=== PATIENT | female | born 1940 | race Caucasian/White ===

== ENCOUNTER 2017-03-07 09:47 | Outpatient (CLI) | payer MEDICARE ==
[2017-03-07 18:38] LABS: BILIRUBIN,URINE NEGATIVE (NEGATIVE)
[2017-03-07 18:45] LABS: ALBUMIN/GLOBULIN RATIO 1.3 (1.0-2.2); BILIRUBIN,TOTAL 0.9 mg/dL (0.2-1.0); BUN - BLOOD UREA NITROGEN 16 mg/dL (6-20); CALCIUM 9.4 mg/dL (8.5-10.3); CARBON DIOXIDE - CO2 30 mmol/L (21-32); CHLORIDE 106 mmol/L (101-111); CHOL/HDL RATIO 3.7 (<4.4); CHOLESTEROL 137 mg/dL; CREATININE 0.9 mg/dL (0.4-1.0); GFR - MDRD 61 (>89); GLUCOSE 98 mg/dL (70-100); HDL CHOLESTEROL 37 mg/dL; POTASSIUM 3.9 mmol/L (3.5-5.0); SODIUM 141 mmol/L (135-145); TRIGLYCERIDES 131 mg/dL; VLDL CHOLESTEROL 26 mg/dL
[2017-03-07 19:12] LABS: HEMOGLOBIN A1C 0.43 g/dL
== END 2017-03-07 09:48 | disposition home or self-care (01) ==
LOC: LAB.F 09:47
PROVIDERS: ATTEND Family Medicine
DX: I10 Essential (primary) hypertension (principal); E78.5 Hyperlipidemia, unspecified; R73.01 Impaired fasting glucose; I25.10 Atherosclerotic heart disease of native coronary artery without angina pectoris
CPT/HCPCS: 36415; 80053; 80061; 81001; 83036

== ENCOUNTER 2018-01-25 15:18 | Outpatient (CLI) | payer OTHER ==
--- NOTE | 2018-01-25 15:39 | XRAY Report ---
Procedure Date: 01/25/2018 Accession Number: [id number] / [id number] Procedure: XRS - Forearm LT CPT Code: FULL RESULT: EXAM: Forearm LT DATE: 01/25/2018 3:33 PM CLINICAL HISTORY: LUMP ON EXTREMITIES LEFT ULNA COMPARISON: None. TECHNIQUE: 2 views. FINDINGS: Bones: Normal. No fractures or bone lesions. Joints: Visualized portions of the wrist and elbow joints are unremarkable. Soft Tissues: Normal. No soft tissue swelling. IMPRESSION: Normal forearm radiography. RADIA
== END 2018-01-25 15:19 | disposition home or self-care (01) ==
LOC: DI.S 15:18
PROVIDERS: ATTEND Family Medicine
DX: R22.32 Localized swelling, mass and lump, left upper limb (principal)

== ENCOUNTER 2018-06-14 12:00 | Outpatient (CLI) | payer MEDICARE, OTHER | END 2018-06-14 23:59 | disposition home or self-care (01) | LOC: LAB.R 12:00 | PROVIDERS: ATTEND Family Medicine | DX: L98.8 Other specified disorders of the skin and subcutaneous tissue (principal) | CPT/HCPCS: 87070; 87075; 87205 ==

== ENCOUNTER 2018-09-14 08:00 | Outpatient (CLI) | payer MEDICARE ==
[2018-09-14 13:02] LABS: BASOPHILS # (AUTO) 0.1 10^3/uL (0.0-0.1); BASOPHILS % (AUTO) 1.5 %; EOSINOPHILS # (AUTO) 0.1 10^3/uL (0.0-0.7); EOSINOPHILS % (AUTO) 2.1 %; HGB - HEMOGLOBIN 11.4 g/dL (12.0-16.0); LYMPHOCYTES # (AUTO) 0.9 10^3/uL (1.5-3.5); MEAN CORPUSCULAR HEMOGLOBIN 32.1 pg (27.0-31.0); MEAN CORPUSCULAR HGB CONC 34.4 g/dL (32.0-36.0); MEAN CORPUSCULAR VOLUME 93.4 fL (81.0-99.0); MEAN PLATELET VOLUME 10.4 fL (7.9-10.8); MONOCYTES # (AUTO) 0.4 10^3/uL (0.0-1.0); MONOCYTES % (AUTO) 9.8 %; NEUTROPHILS # (AUTO) 2.9 10^3/uL (1.5-6.6); NEUTROPHILS % (AUTO) 65.6 %; PLT - PLATELET COUNT 168 10^3/uL (130-450); RED BLOOD COUNT 3.55 10^6/uL (4.20-5.40); RED CELL DISTRIBUTION WIDTH 12.4 % (12.0-15.0); WHITE BLOOD COUNT 4.4 x10^3/uL (4.8-10.8)
[2018-09-14 13:23] LABS: ALBUMIN 3.2 g/dL (3.2-5.5); ALBUMIN/GLOBULIN RATIO 1.1 (1.0-2.2); ALKALINE PHOSPHATASE 73 IU/L (42-121); ALT ALANINE AMINOTRANSFERASE 22 IU/L (10-60); AST ASPARTATE AMINOTRANSFERASE 30 IU/L (10-42); BILIRUBIN,TOTAL 0.7 mg/dL (0.2-1.0); BUN - BLOOD UREA NITROGEN 16 mg/dL (6-20); CALCIUM 9.1 mg/dL (8.5-10.3); CARBON DIOXIDE - CO2 29 mmol/L (21-32); CHLORIDE 102 mmol/L (101-111); CHOL/HDL RATIO 3.3 (<4.4); CHOLESTEROL 135 mg/dL; CREATININE 0.9 mg/dL (0.4-1.0); GFR - MDRD 61 (>89); GLUCOSE 93 mg/dL (70-100); HDL CHOLESTEROL 41 mg/dL; LDL CHOLESTEROL,CALCULATED 64 mg/dL; LDL/HDL RATIO 1.6 (<4.4); SODIUM 139 mmol/L (135-145); TOTAL PROTEIN 6.2 g/dL (6.7-8.2); VLDL CHOLESTEROL 30 mg/dL
== END 2018-09-14 23:59 | disposition home or self-care (01) ==
LOC: LAB.WCP 08:00
PROVIDERS: ATTEND Family Medicine
DX: E78.5 Hyperlipidemia, unspecified (principal); I10 Essential (primary) hypertension
CPT/HCPCS: 36415; 80053; 80061; 83721; 85025

== ENCOUNTER 2019-06-11 10:22 | Outpatient (CLI) | payer MEDICARE ==
[2019-06-11 17:25] LABS: BASOPHILS % (AUTO) 0.8 %; EOSINOPHILS # (AUTO) 0.2 10^3/uL (0.0-0.7); EOSINOPHILS % (AUTO) 4.1 %; HGB - HEMOGLOBIN 11.7 g/dL (12.0-16.0); LYMPHOCYTES # (AUTO) 0.8 10^3/uL (1.5-3.5); MEAN CORPUSCULAR HEMOGLOBIN 32.1 pg (27.0-31.0); MEAN CORPUSCULAR HGB CONC 31.8 g/dL (32.0-36.0); MEAN CORPUSCULAR VOLUME 101.1 fL (81.0-99.0); MEAN PLATELET VOLUME 12.4 fL (7.9-10.8); MONOCYTES # (AUTO) 0.5 10^3/uL (0.0-1.0); MONOCYTES % (AUTO) 13.3 %; NEUTROPHILS # (AUTO) 2.2 10^3/uL (1.5-6.6); NEUTROPHILS % (AUTO) 60.5 %; PLT - PLATELET COUNT 172 10^3/uL (130-450); RED BLOOD COUNT 3.64 10^6/uL (4.20-5.40); RED CELL DISTRIBUTION WIDTH 12.2 % (12.0-15.0); WHITE BLOOD COUNT 3.6 x10^3/uL (4.8-10.8)
[2019-06-11 17:45] LABS: ALBUMIN 3.6 g/dL (3.2-5.5); ALBUMIN/GLOBULIN RATIO 1.2 (1.0-2.2); ALKALINE PHOSPHATASE 74 IU/L (42-121); ALT ALANINE AMINOTRANSFERASE 22 IU/L (10-60); AST ASPARTATE AMINOTRANSFERASE 28 IU/L (10-42); BILIRUBIN,TOTAL 0.7 mg/dL (0.2-1.0); BUN - BLOOD UREA NITROGEN 19 mg/dL (6-20); CALCIUM 9.4 mg/dL (8.5-10.3); CARBON DIOXIDE - CO2 30 mmol/L (21-32); CHLORIDE 105 mmol/L (101-111); CHOL/HDL RATIO 3.5 (<4.4); CHOLESTEROL 176 mg/dL; CREATININE 0.8 mg/dL (0.4-1.0); GFR - MDRD 70 (>89); GLUCOSE 95 mg/dL (70-100); HDL CHOLESTEROL 51 mg/dL; LDL CHOLESTEROL,CALCULATED 96 mg/dL; LDL/HDL RATIO 1.9 (<4.4); SODIUM 141 mmol/L (135-145); TOTAL PROTEIN 6.7 g/dL (6.7-8.2); VLDL CHOLESTEROL 29 mg/dL
== END 2019-06-11 10:23 | disposition home or self-care (01) ==
LOC: LAB.S 10:22
PROVIDERS: ATTEND Family Medicine
DX: I10 Essential (primary) hypertension (principal); E78.5 Hyperlipidemia, unspecified; I25.10 Atherosclerotic heart disease of native coronary artery without angina pectoris
CPT/HCPCS: 36415; 80053; 80061; 83721; 84443; 85025

== ENCOUNTER 2019-06-20 10:18 | Outpatient (CLI) | payer MEDICARE ==
--- NOTE | 2019-06-21 09:05 | Mammography Report ---
Reason: ROUTINE MAMMO Procedure Date: 06/20/2019 Accession Number: [id number] / [id number] Procedure: MGS - Screening Mammo Dig Bilat CPT Code: Final Report FULL RESULT: EXAM: Screening Mammo Dig Bilat DATE: 06/20/2019 10:53 AM CLINICAL HISTORY: Screening encounter. TECHNIQUE: (B) - Bilateral CC and MLO views were obtained. Left laterally exaggerated CC view is obtained. COMPARISON: 04/20/2016 through 10/06/2009. PARENCHYMAL PATTERN: (D) - The breast(s) demonstrate(s) heterogeneously dense fibroglandular parenchyma. FINDINGS: There are typically benign vascular calcifications. There are no suspicious masses, calcifications, or areas of distortion. IMPRESSION: Benign findings. BI-RADS category 2. RECOMMENDATION: (ANNUAL) - Recommend routine annual screening mammography. BI-RADS CATEGORY: (2) - Benign Findings. STANDARD QUALIFYING STATEMENTS: 1. This examination was reviewed with the aid of Computer-Aided Detection (CAD). 2. A negative or benign imaging report should not preclude biopsy if clinically suspicious findings are present. 3. Dense breasts may obscure an underlying neoplasm. 4. This examination was reviewed without the aid of 3D breast imaging (tomosynthesis).
== END 2019-06-20 10:19 | disposition home or self-care (01) ==
LOC: DI.S 10:18
PROVIDERS: ATTEND Family Medicine
DX: Z12.31 Encounter for screening mammogram for malignant neoplasm of breast (principal)
CPT/HCPCS: 77067

== ENCOUNTER 2020-05-24 14:42 | Outpatient (CLI) | payer MEDICARE ==
--- NOTE | 2020-05-24 19:06 | Ultrasound Report ---
PROCEDURE: Duplex Lwr Ext Arterial Bilat INDICATIONS: ABSENT DP PULSE TECHNIQUE: Color and pulse Doppler interrogation was performed of both lower extremity arterial systems, with im age documentation. COMPARISON: None available FINDINGS: Right lower extremity: Common femoral artery: 126.4 cm/sec, with triphasic flow. Deep femoral artery: 116.8 cm/sec, with biphasic flow. Proximal superficial femoral artery: 115 cm/sec, with triphasic flow. Mid superficial femoral artery: 145.8 cm/sec, with biphasic. flow. Distal superficial femoral artery: 99.7 cm/sec, with biphasic flow. Popliteal artery: 82.0 cm/sec, with triphasic flow. Posterior tibial artery: 23.0 cm/sec, with monophasic flow. Anterior tibial artery/dorsalis pedis: 76.7 cm/sec, with biphasic flow. 44.7 cm/s, with monophasic flow Rivero-scale imaging description: Extensive coarse calcification in the proximal SFA causing luminal i rregularity. There is moderate focal calcific plaque in the mid SFA causing slight distal velocity el evation. Proximal posterior tibial artery was not seen. The distal posterior tibial reconstitutes. The peronea l artery is patent. Calcification of calf arteries. There is a Goodman's cyst in the right popliteal fossa soft tissues measuring 5.9 x 1.1 x 3.1 cm Left lower extremity: Common femoral artery: 76.3 cm/sec, with biphasic flow. Deep femoral artery: 85.4 cm/sec, with biphasic flow. Proximal superficial femoral artery: 57.3 cm/sec, with triphasic flow. Mid superficial femoral artery: 90.0 cm/sec, with biphasic flow. Distal superficial femoral artery: 90.6 cm/sec, with biphasic flow. Popliteal artery: 77.5 cm/sec, with biphasic flow. Posterior tibial artery: 28.0 cm/sec, with monophasic flow. Anterior tibial artery/dorsalis pedis: 55.8 cm/sec, with biphasic flow. 25.7 cm/s with monophasic fl ow Rivero-scale imaging description: Calcific plaque in the left mid SFA without causing significant cyndy nal stenosis. There is more extensive plaque in the mid to distal SFA. Mid posterior tibial artery is not well seen. The peroneal artery is patent. Calcification of calf arteries. IMPRESSION: 1. There is bilateral calcification, most extensive in the right proximal to mid, and left mid to dis lily superficial femoral arteries. Given velocities, there is no hemodynamically significant stenosis. 2. Heavy calcification in all calf arteries with possible occlusion of the right proximal posterior t ibial artery and reconstitution distally. 3. For further evaluation, CTA or MRA lower extremity runoff is recommended. Reviewed by: Marizol Morales MD on 05/24/2020 7:05 PM PST Approved by: Marizol Morales MD on 05/24/2020 7:05 PM PST Station ID: [id number]
== END 2020-05-24 14:43 | disposition home or self-care (01) ==
LOC: DI 14:42
PROVIDERS: ATTEND Internal Medicine
DX: I70.203 Unspecified atherosclerosis of native arteries of extremities, bilateral legs (principal)
CPT/HCPCS: 93925

== ENCOUNTER 2020-06-20 20:05 | Emergency (ER) | payer MEDICARE ==
--- NOTE | 2020-06-20 21:49 | ED Physician Documentation ---
PD HPI Fall - Stated complaint Stated Complaint: FALL - Chief complaint Chief Complaint: Trauma Hd/Nk - History obtained from History obtained from: Patient - History of Present Illness Mechanism of injury: Other (see narrative below) Fall distance: Standing position Where injury occurred: A house / apartment Timing - onset: Enter time (13:00) Injury(ies) location: Head, Left Lower Extremity Pain level now: 3 Quality of pain: Pain Associated symptoms: LOC Symptoms improve with: Rest Worsens with: Movement, Palpation Contributing factors: No: Anticoagulated, Intoxicated Recently seen: Not recently seen - Additional information Additional information: 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 she was backing up to compose a shot and was concentrating on the picture and didnt realize she was close to the stairs, causing her to back up until she fell backwards down 4 stairs. she hit her head and had brief LOC. she c/o mild generalized SALDANA. her chief c/o is right pelvic bony pain posteriorly (left buttock) and anteriorly at groin, worse with weight-bearing. this occurred at 1 pm; she has been ambulatory since then despite painful weight-bearing on LLE Review of Systems Eyes: reports: Reviewed and negative Cardiac: reports: Reviewed and negative Respiratory: reports: Reviewed and negative GI: reports: Reviewed and negative Neurologic: reports: Headache, Head injury, LOC. 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 - Present Medications Home Medications: Ambulatory Orders Medication Instructions Recorded Confirmed Aspirin Chewable [St Ethan 81 mg PO DAILY 06/20/20 06/20/20 Aspirin] Rosuvastatin Calcium [Crestor] DAILY 06/20/20 amLODIPine [Norvasc] 5 mg DAILY 06/20/20 06/20/20 carvediloL [Coreg] 6.25 mg BID 06/20/20 06/20/20 - Allergies Allergies/Adverse Reactions: Allergies Allergy/AdvReac Type Severity Reaction Status Date / Time No Known Drug Allergies Allergy Verified 06/20/20 20:09 - Social History Does the pt smoke?: No Smoking Status: Never smoker Does the pt drink ETOH?: No Does the pt have substance abuse?: No PD ED PE NORMAL - Vitals Vital signs reviewed: Yes - General General: Alert and oriented X 3, No acute distress, Well developed/nourished - HEENT HEENT: PERRL, EOMI - Neck Neck: No bony TTP - Cardiac Cardiac: RRR, No murmur - Respiratory Respiratory: No respiratory distress, Clear bilaterally - Abdomen Abdomen: Soft, Non tender - Back Back: No spinal TTP - Extremities Extremities: No edema, Other (mild TTP left bony pelvis and lateral left hip) - Neuro Neuro: Alert and oriented X 3, 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, No motor deficit, No sensory deficit, Normal speech PD ED PE EXPANDED - HEENT HEENT Visual: 1 - swelling, tenderness Results - Vitals Vitals: Vital Signs - 24 hr 06/20/20 06/20/20 06/20/20 20:12 20:45 21:15 Temperature 36.9 C 36.9 C 36.8 C Heart Rate 80 75 69 Respiratory 18 12 20 Rate Blood Pressure 160/79 H 163/74 H 160/80 H O2 Saturation 100 100 99 06/20/20 06/20/20 06/20/20 21:30 22:00 22:42 Temperature 36.7 C 36.8 C Heart Rate 69 70 71 Respiratory 20 16 20 Rate Blood Pressure 151/87 H 162/83 H 157/78 H O2 Saturation 97 98 99 06/20/20 06/20/20 23:00 23:27 Temperature 36.9 C 36.7 C Heart Rate 68 71 Respiratory 15 16 Rate Blood Pressure 152/83 H 148/73 H O2 Saturation 99 100 Oxygen O2 Source Room air - Rads (name of study) CT head Radiology: Prelim report reviewed, See rad report left hip xrays Radiology: Prelim report reviewed, See rad report PD MEDICAL DECISION MAKING - ED course Complexity details: reviewed results, re-evaluated patient, considered differential, d/w patient Departure - Departure Disposition: 01 Home, Self Care Clinical Impression: Contusion, Fall, Sprain of left hip Condition: Good Instructions: ED Contusion Scalp, ED Mechanical Fall, ED Sprain Hip Follow-Up: Viridiana Lewis MD [Primary Care Provider] - Discharge Date/Time: 06/20/20 23:45
[2020-06-20 23:27] VITALS: BP 148/73
--- NOTE | 2020-06-21 08:57 | CT Report ---
PROCEDURE: HEAD WO INDICATIONS: fall, head injury with LOC TECHNIQUE: Noncontrast 4.5 mm thick angled axial sections acquired from the foramen magnum to the vertex. For r adiation dose reduction, the following was used: automated exposure control, adjustment of mA and/or kV according to patient size. COMPARISON: None. FINDINGS: Image quality: Excellent. CSF spaces: Basal cisterns are patent. No extra-axial fluid collections. Ventricles are normal in size and shape. Brain: No midline shift. No intracranial masses or hemorrhage. There is patchy confluent hypoattenu ation of the periventricular and deep white matter consistent with moderate to severe chronic small v essel ischemic disease. Skull and face: Calvarium and visualized facial bones are intact, without suspicious lesions. Left posterior parietal/occipital scalp hematoma measuring 6 mm. Sinuses: Visualized sinuses and mastoids are clear. IMPRESSION: 1. No acute intracranial abnormality. 2. Left posterior parietal/occipital scalp hematoma. 3. Chronic small vessel ischemic disease. Reviewed by: Logan Osullivan on 06/21/2020 8:55 AM [facility] Approved by: Logan Osullivan on 06/21/2020 8:55 AM [facility] Station ID: [id number]
--- NOTE | 2020-06-21 09:25 | XRAY Report ---
PROCEDURE: Hip w/Pelvis 2-3V LT INDICATIONS: fall, pain and tenderness TECHNIQUE: AP pelvis with lateral view(s) of the bilateral hip(s). COMPARISON: None. FINDINGS: Bones: No fractures or dislocations. Mild degenerative change of the left hip. Pelvic ring appears i ntact. Moderate degenerative change of the lumbar spine. No suspicious bony lesions. Soft tissues: Prominent stool in the colon. Gas in the rectal vault. No suspicious soft tissue calcif ications. Vascular calcifications. IMPRESSION: No fracture or dislocation. Prominent stool in the colon. This report is concordant with the overnight pulmonary interpretation. Reviewed by: Jason Dominique MD on 06/21/2020 8:24 AM [facility] Approved by: Jason Dominique MD on 06/21/2020 8:24 AM [facility] Station ID: [id number]
== END 2020-06-20 23:45 | disposition home or self-care (01) ==
LOC: ED 20:05
DX: S06.9X1A Unspecified intracranial injury with loss of consciousness of 30 minutes or less, initial encounter (principal); S00.03XA Contusion of scalp, initial encounter; S73.102A Unspecified sprain of left hip, initial encounter; W10.9XXA Fall (on) (from) unspecified stairs and steps, initial encounter; Y93.89 Activity, other specified; Y92.009 Unspecified place in unspecified non-institutional (private) residence as the place of occurrence of the external cause; I10 Essential (primary) hypertension; Z79.82 Long term (current) use of aspirin
CPT/HCPCS: 70450; 99282; 99284

== ENCOUNTER 2020-10-20 13:42 | Outpatient (CLI) | payer MEDICARE ==
--- NOTE | 2020-10-21 13:23 | Mammography Report ---
BILATERAL DIGITAL SCREENING MAMMOGRAM 3D/2D WITH EXAGGERATED CC: 10/20/2020 CLINICAL: Family history of breast cancer. Family history of breast cancer. Comparison is made to exams dated: 06/20/2019 mammogram, 04/20/2016 mammogram, 04/09/2015 mammogram, 02/18/2014 mammogram, and 01/24/2013 mammogram - [facility]. The tissue of both rachel sts is predominantly fatty. There is a 1 cm asymmetry with a circumscribed margin in the right breast middle depth lateral region seen on the craniocaudal view only 8 cm from the nipple. No other significant masses, calcifications, or other findings are seen in either breast. IMPRESSION: INCOMPLETE: NEEDS ADDITIONAL IMAGING EVALUATION The 1 cm asymmetry in the right breast is consistent with fibroglandular tissue and is indeterminate. Additional views with possible ultrasound are recommended. This exam was interpreted at Station ID: [id number]. NOTE: For mammograms, a report in lay terms will be sent to the patient. Approximately 15% of breast malignancies will not be visualized mammographically. In the management of a palpable breast mass, a negative mammogram must not discourage biopsy of a clinically suspicious lesion. Electronically Signed By: Logan Osullivan acr/:10/20/2020 14:43:54 ACR BI-RADS Category 0: Incomplete 3340F PARENCHYMAL PATTERN: (F) - The breast(s) demonstrate(s) diffuse fatty replacement. BI-RADS CATEGORY: (0) - 0 Mammo and US [id number] Immediate follow-up LATERALITY: (R)
== END 2020-10-20 13:43 | disposition home or self-care (01) ==
LOC: DI.S 13:42
PROVIDERS: ATTEND Internal Medicine
DX: Z12.31 Encounter for screening mammogram for malignant neoplasm of breast (principal); Z80.3 Family history of malignant neoplasm of breast; N64.89 Other specified disorders of breast

== ENCOUNTER 2020-11-10 09:35 | Outpatient (CLI) | payer MEDICARE ==
--- NOTE | 2020-11-11 12:15 | Mammography Report ---
UNILATERAL RIGHT DIGITAL DIAGNOSTIC MAMMOGRAM 3D/2D: 11/10/2020 CLINICAL: Patient returns today to evaluate a density in the right breast. Comparison is made to exams dated: 10/20/2020 mammogram, 06/20/2019 mammogram, and 04/20/2016 mammogr am - [facility]. The tissue of right breast is heterogeneously dense. This may low er the sensitivity of mammography. There is an oval low density asymmetry with an indistinct and circumscribed margin in the right breas t posterior depth lateral region seen on the craniocaudal view only. This is less prominent on addit ional views. No other significant masses or calcifications are seen in the breast. IMPRESSION: INCOMPLETE: NEEDS ADDITIONAL IMAGING EVALUATION The oval low density asymmetry in the right breast is indeterminate. An ultrasound is recommended. Ultrasound will be performed immediately following the current exam. This exam was interpreted at Station ID: [id number]. NOTE: For mammograms, a report in lay terms will be sent to the patient. Approximately 15% of breast malignancies will not be visualized mammographically. In the management of a palpable breast mass, a negative mammogram must not discourage biopsy of a clinically suspicious lesion. Electronically Signed By: Gianluca Fernandez M.D. ddp/:11/10/2020 10:08:50 ACR BI-RADS Category 0: Incomplete 3340F PARENCHYMAL PATTERN: (D) - The breast(s) demonstrate(s) heterogeneously dense fibroglandular parmaty cheng. BI-RADS CATEGORY: (0) - 0 Ultrasound [id number] Immediate follow-up LATERALITY: (B)
--- NOTE | 2020-11-11 12:15 | Ultrasound Report ---
LIMITED ULTRASOUND OF RIGHT BREAST: 11/10/2020 CLINICAL: Patient returns today to evaluate a focal asymmetry in the right breast. Comparison is made to exams dated: 11/10/2020 mammogram, 10/20/2020 mammogram, 06/20/2019 mammogram, mammogram, 04/09/2015 mammogram, and 02/18/2014 mammogram - [facility]. Real-time ultrasound of the right breast 8-11 o'clock region was performed on the areas of interest. Rivero scale images of the real-time examination were reviewed. No discrete cystic or solid mass lesion identified in the area of mammographic abnormality. IMPRESSION: NEGATIVE There is no sonographic evidence of malignancy. There are no abnormalities seen in the right breast to correspond with the mammography finding in the upper outer quadrant. A 1 year screening mammogram is recommended. This exam was interpreted at Station ID: [id number]. Electronically Signed By: Gianluca Fernandez M.D. ddp/:11/10/2020 10:41:11 Ultrasound BI-RADS: 1 Negative BI-RADS CATEGORY: (1) - 1 RECOMMENDATION: (ANNUAL) - Recommend routine annual screening mammography. [id number] 1 year screening LATERALITY: (B)
== END 2020-11-10 09:36 | disposition home or self-care (01) ==
LOC: DI 09:35
PROVIDERS: ATTEND Internal Medicine
DX: R92.2 Inconclusive mammogram (principal); N64.89 Other specified disorders of breast

== ENCOUNTER 2021-10-26 08:00 | Outpatient (CLI) | payer MEDICARE ==
[2021-10-26 16:18] LABS: BASOPHILS % (AUTO) 0.5 %; EOSINOPHILS # (AUTO) 0.1 10^3/uL (0.0-0.7); EOSINOPHILS % (AUTO) 3.1 %; HCT - HEMATOCRIT 36.5 % (37.0-47.0); HGB - HEMOGLOBIN 11.9 g/dL (12.0-16.0); LYMPHOCYTES # (AUTO) 0.9 10^3/uL (1.5-3.5); LYMPHOCYTES % (AUTO) 21.7 %; MEAN CORPUSCULAR HEMOGLOBIN 31.9 pg (27.0-31.0); MEAN CORPUSCULAR HGB CONC 32.6 g/dL (32.0-36.0); MEAN CORPUSCULAR VOLUME 97.9 fL (81.0-99.0); MEAN PLATELET VOLUME 11.7 fL (7.9-10.8); MONOCYTES # (AUTO) 0.3 10^3/uL (0.0-1.0); NEUTROPHILS # (AUTO) 2.8 10^3/uL (1.5-6.6); NEUTROPHILS % (AUTO) 66.5 %; PLT - PLATELET COUNT 176 10^3/uL (130-450); RED BLOOD COUNT 3.73 10^6/uL (4.20-5.40); RED CELL DISTRIBUTION WIDTH 12.5 % (12.0-15.0); WHITE BLOOD COUNT 4.1 x10^3/uL (4.8-10.8)
[2021-10-26 16:36] LABS: ALBUMIN 3.7 g/dL (3.2-5.5); ALBUMIN/GLOBULIN RATIO 1.2 (1.0-2.2); ALKALINE PHOSPHATASE 64 IU/L (42-121); ALT ALANINE AMINOTRANSFERASE 21 IU/L (10-60); AST ASPARTATE AMINOTRANSFERASE 26 IU/L (10-42); BILIRUBIN,TOTAL 0.5 mg/dL (0.2-1.0); BUN - BLOOD UREA NITROGEN 17 mg/dL (6-20); CALCIUM 9.2 mg/dL (8.5-10.3); CARBON DIOXIDE - CO2 29 mmol/L (21-32); CHLORIDE 101 mmol/L (101-111); CHOL/HDL RATIO 3.4 (<4.4); CHOLESTEROL 148 mg/dL; CK- CREATINE KINASE 88 IU/L (22-269); CREATININE 0.8 mg/dL (0.4-1.0); GFR - MDRD 69 (>89); GLUCOSE 102 mg/dL (70-100); HDL CHOLESTEROL 43 mg/dL; LDL CHOLESTEROL,CALCULATED 84 mg/dL; POTASSIUM 4.1 mmol/L (3.5-5.0); SODIUM 138 mmol/L (135-145); TOTAL PROTEIN 6.9 g/dL (6.7-8.2); TRIGLYCERIDES 107 mg/dL; VLDL CHOLESTEROL 21 mg/dL
== END 2021-10-26 08:01 | disposition home or self-care (01) ==
LOC: LAB.R 08:00
PROVIDERS: ATTEND Internal Medicine
DX: Z00.00 Encounter for general adult medical examination without abnormal findings (principal); I25.10 Atherosclerotic heart disease of native coronary artery without angina pectoris; I10 Essential (primary) hypertension; Z79.899 Other long term (current) drug therapy
CPT/HCPCS: 80053; 80061; 82550; 83721; 84443; 85025

== ENCOUNTER 2022-01-04 09:42 | Outpatient (CLI) | payer MEDICARE ==
--- NOTE | 2022-01-05 09:04 | Mammography Report ---
BILATERAL DIGITAL SCREENING MAMMOGRAM 3D/2D: 01/04/2022 CLINICAL: Routine screening. Family history of breast cancer. Comparison is made to exams dated: 10/20/2020 mammogram, 06/20/2019 mammogram, and 04/20/2016 mammogr am - [facility]. The tissue of both breasts is heterogeneously dense. This may low er the sensitivity of mammography. There are benign vascular calcifications in both breasts. No significant masses, calcifications, or other findings are seen in either breast. There has been no significant interval change. IMPRESSION: BENIGN There is no mammographic evidence of malignancy. A 1 year screening mammogram is recommended. Based on the Tyrer Cuzick model (a risk assessment model) the patients lifetime risk is 2.2% and her 10 year risk is 0.0%. According to the ACR, ACS, and NCCN guidelines, an annual breast MRI exam rebecca g with mammogram is recommended if the patients lifetime risk is 20% or greater. This exam was interpreted at Station ID: [id number]. NOTE: For mammograms, a report in lay terms will be sent to the patient. Approximately 15% of breast malignancies will not be visualized mammographically. In the management of a palpable breast mass, a negative mammogram must not discourage biopsy of a clinically suspicious lesion. Electronically Signed By: Tami houston/behzad:01/04/2022 13:26:45 ACR BI-RADS Category 2: Benign Finding(s) 3342F PARENCHYMAL PATTERN: (D) - The breast(s) demonstrate(s) heterogeneously dense fibroglandular dale cheng. BI-RADS CATEGORY: (2) - 2 RECOMMENDATION: (ANNUAL) - Recommend routine annual screening mammography. [id number] 1 year screening LATERALITY: (B)
== END 2022-01-04 09:43 | disposition home or self-care (01) ==
LOC: DI.S 09:42
PROVIDERS: ATTEND Internal Medicine
DX: Z12.31 Encounter for screening mammogram for malignant neoplasm of breast (principal); Z80.3 Family history of malignant neoplasm of breast

== ENCOUNTER 2023-01-03 08:47 | Outpatient (CLI) | payer MEDICARE ==
--- NOTE | 2023-01-04 10:25 | Mammography Report ---
BILATERAL DIGITAL SCREENING MAMMOGRAM 3D/2D: 01/03/2023 CLINICAL: Routine screening. Family history of breast cancer. Comparison is made to exams dated: 01/04/2022 mammogram, 11/10/2020 ultrasound, 06/20/2019 mammogram, a nd 04/20/2016 mammogram - [facility]. Both breasts are heterogeneously dense, which may obscure small masses (category c / 51-75% glandular tissue). There are benign vascular calcifications in both breasts. No significant masses, calcifications, or other findings are seen in either breast. There has been no significant interval change. IMPRESSION: BENIGN There is no mammographic evidence of malignancy. A 1 year screening mammogram is recommended. Based on the Tyrer Cuzick model (a risk assessment model) the patients lifetime risk is 1.9% and her 10 year risk is 0.0%. According to the ACR, ACS, and NCCN guidelines, an annual breast MRI exam rebecca g with mammogram is recommended if the patients lifetime risk is 20% or greater. This exam was interpreted at Station ID: [id number]. NOTE: For mammograms, a report in lay terms will be sent to the patient. Approximately 15% of breast malignancies will not be visualized mammographically. In the management of a palpable breast mass, a negative mammogram must not discourage biopsy of a clinically suspicious lesion. Electronically Signed By: Sacha moore/behzad:01/03/2023 20:19:37 letter sent: No_Letter ACR BI-RADS Category 2: Benign Finding(s) 3342F PARENCHYMAL PATTERN: (D) - The breast(s) demonstrate(s) heterogeneously dense fibroglandular parfarzanay ma. BI-RADS CATEGORY: (2) - 2 Mammogram [id number] 1 year screening LATERALITY: (B)
== END 2023-01-03 08:48 | disposition home or self-care (01) ==
LOC: DI.S 08:47
PROVIDERS: ATTEND Internal Medicine
DX: Z12.31 Encounter for screening mammogram for malignant neoplasm of breast (principal); Z80.3 Family history of malignant neoplasm of breast

== ENCOUNTER 2024-01-15 08:45 | Outpatient (CLI) | payer MEDICARE ==
--- NOTE | 2024-01-16 08:56 | Mammography Report ---
BILATERAL DIGITAL SCREENING MAMMOGRAM 3D/2D: 01/15/2024 CLINICAL: Routine screening. Family history of breast cancer. Comparison is made to exams dated: 01/03/2023 mammogram, 01/04/2022 mammogram, 11/10/2020 mammogram, 10/08 mammogram, and 06/20/2019 mammogram - [facility]. Both breasts are heterogeneously dense, which may obscure small masses (category c / 51-75% glandular tissue). There are benign vascular calcifications in both breasts. No significant masses, calcifications, or other findings are seen in either breast. There has been no significant interval change. IMPRESSION: BENIGN There is no mammographic evidence of malignancy. A 1 year screening mammogram is recommended. Based on the Tyrer Cuzick model (a risk assessment model) the patient's lifetime risk is 0.9% and her 10 year risk is 0.0%. According to the ACR, ACS, and NCCN guidelines, an annual breast MRI exam rebecca g with mammogram is recommended if the patient's lifetime risk is 20% or greater. This exam was interpreted at Station ID: [id number]. NOTE: For mammograms, a report in lay terms will be sent to the patient. Approximately 15% of breast malignancies will not be visualized mammographically. In the management of a palpable breast mass, a negative mammogram must not discourage biopsy of a clinically suspicious lesion. Electronically Signed By: Marizol slade/behzad:01/15/2024 12:19:46 letter sent: No_Letter ACR BI-RADS Category 2: Benign Finding(s) 3342F PARENCHYMAL PATTERN: (D) - The breast(s) demonstrate(s) heterogeneously dense fibroglandular parmaty ma. BI-RADS CATEGORY: (2) - 2 RECOMMENDATION: (ANNUAL) - Recommend routine annual screening mammography. [id number] 1 year screening LATERALITY: (B)
== END 2024-01-15 08:46 | disposition home or self-care (01) ==
LOC: DI.S 08:45
PROVIDERS: ATTEND Internal Medicine
DX: Z12.31 Encounter for screening mammogram for malignant neoplasm of breast (principal); R92.333 Mammographic heterogeneous density, bilateral breasts; Z80.3 Family history of malignant neoplasm of breast

== ENCOUNTER 2024-04-09 11:41 | Inpatient (IN) ==
[2024-04-09] MEDS ORDERED: iohexoL-300 100 ML VIAL ONE (12:36)
[2024-04-09] MEDS ORDERED: LABETALOL 20 MG/4 ML SYRINGE IVP ONE (15:09)
--- NOTE | 2024-04-09 15:50 | HISTORY & PHYSICAL EXAMINATION ---
Chief Complaint Chief Complaint Chief Complaint: Left-sided weakness History of Present Illness History Obtained From History obtained from: Patient History of Present Illness HPI Comment/Other: Patient is a 83-year-old female with a history of CABG in 2008, hyperlipidemia, hypertension who presents after left-sided weakness. Patient states that yesterday, around 8 AM, she noted that her left leg was weaker, as well as her left arm. She stated that it kept giving out. She also stated that she had difficulty braiding her hair.After this, she believed she had a "minor stroke" but didn't think there was anything that could be done, so she didn't seek medical attention. Of note, her PCP recently retired as well (cannot recall their name), so she didn't make an appointment with a PCP either. This morning, [place] was at the bank, and she had 2-3 falls. Bystanders noted the weakness and encouraged her to go to a walk-in clinic, who sent her here. She has never had any strokes in the past. She denies any history of abnormal heart rhythms including atrial fibrillation, although her history is notable for a CABG in 2008. She states her blood pressure is well controlled and her doctor stopped her losartan. She is not a diabetic. Patient states that her left leg and her left arm both feel weak. She notes normal sensation. She notes no difficulties moving her right side. She has no vision changes, tongue deviation, difficulty speaking, difficulty expressing herself. She also denies any fevers, chills, chest pain, shortness of breath. She took her medications earlier this morning including her aspirin. Meds/Allgy Home Medications Ambulatory Orders Medication Instructions Recorded Confirmed aspirin 81 mg chewable tablet 81 mg PO DAILY 06/20/20 04/09/24 rosuvastatin 5 mg tablet (Crestor) 5 mg PO DAILY 06/20/20 04/09/24 carvedilol 25 mg tablet 25 mg PO BID 04/09/24 04/09/24 Allergies Allergies Allergy/AdvReac Type Severity Reaction Status Date / Time atenolol AdvReac Intermediate sore Verified 04/09/24 15:50 [facility] Family History Family History (Updated 04/09/24 @ 16:01 by Ann Navarro MD) Other CAD (coronary artery disease) Social History Social History (Updated 04/09/24 @ 16:01 by Ann Navarro MD) Smoking Status: Never smoker Do you vape?: No Living arrangement: At home Living Condition: Alone Physical Activity: Walking Level: Independent Home Mobility Equipment: Walker History of Abuse: No Frequency: Occasional POLST Patient has POLST: No Review of Systems Constitutional Reports: Weakness; Denies: Fatigue, Fever or Chills Eyes Denies: Pain, Irritation, Blurry vision or Vision loss Cardiovascular Denies: chest pain, palpitations, edema, swelling of feet/ankles, Syncope, lightheadedness or shortness of breath with exertion Respiratory Denies: Shortness of breath, Cough, Sputum production or Wheezing Gastrointestinal Denies: Abdominal pain, Abdominal distention, Nausea or Vomiting Genitourinary Denies: Urinary frequency, Urinary urgency or Urinary incontinence Neurological Reports: General weakness, Focal weakness and Weakness in extremities (Left upper and lwoer) Endocrine Denies: Fatigue Allergic/Immunologic Denies: Wheezing Prior Level of Functionality: Lived independently, ambulation with walker. Conclusion/Plan Problem List (1) Acute CVA (cerebrovascular accident): Plan: MRI shows acute CVA in ramos radiata (awaiting final report). Awaiting CTA. Echo ordered, cardiac telemetry placed to evaluate for any arrhythmias. Continue aspirin, statin. Consider high-dose statin. Physical therapy to evaluate patient for placement. (2) Left-sided weakness: Plan: See plan above. (3) Hypertension: Plan: Out of window for permissive hypertension; continue home Coreg. (4) Hyperlipidemia: Plan: Continue statin. Consider high dose statin. Lab Results Lab results reviewed: Yes Diagnostic Imaging Results Diagnostic Imaging Results: positive Prelim report reviewed and Critical result EKG Results EKG Interpreted Independently: Yes Core Measures Anticipated LOS I expect patient to be DC'd or transferred within 96 hours.: Yes Exam Constitutional normal general appearance and no apparent distress Eyes PERRL and EOMs intact bilaterally Chest inspection of chest normal Respiratory breath sounds equal bilaterally, clear to auscultation bilaterally, no wheezes and no rales Cardiovascular normal heart rate noted, regular rhythm noted, no gallop, no rub and no murmur Gastrointestinal abdomen normal to inspection, nontender to palpation, nondistended and normoactive bowel sounds Neurology focal motor deficit noted Psychiatry oriented x3 Skin skin color normal and no rash
[2024-04-09] MEDS ORDERED: SODIUM CHLORIDE FLUSH 0.9% 10 ML SYRINGE IVP PRN (16:33)
--- NOTE | 2024-04-09 17:07 | MRI Report ---
PROCEDURE: MRI Brain WO INDICATIONS: LT SIDED WEAKNESS TECHNIQUE: Noncontrast axial T1 spin echo, axial T2 fast spin echo, sagittal and axial FLAIR, coronal T2 fast sp in echo, axial gradient echo, axial diffusion and ADC through the brain. COMPARISON: Same day head CT's FINDINGS: Image quality: Excellent. CSF Spaces: Basal cisterns are patent. No extra-axial fluid collections. Ventricles are normal in size and shape. Brain: No intracranial masses or hemorrhage. [place]/white matter interface is normal. Brainstem appe ars normal. Acute infarct of the right basal ganglia and ramos radiata, with restricted diffusion bu t no T2-weighted signal. No chronic ischemic insults. Normal intravascular flow voids are present. Skull and face: Calvarium has normal marrow signal. Orbits appear normal. Sinuses: Sinuses and mastoids are clear. IMPRESSION: Acute infarct of the right basal ganglia and ramos radiata. Agree with preliminary report. Reviewed by: Gunner Bond MD on 04/09/2024 5:06 PM PDT Approved by: Gunner Bond MD on 04/09/2024 5:06 PM PDT Station ID: [id number]
[2024-04-09] MEDS: SODIUM CHLORIDE FLUSH 0.9% 10 ML SYRINGE IVP SCH (17:56)
[2024-04-09] MEDS: hydrALAZINE 25 MG TABLET PO ONE (17:56)
--- NOTE | 2024-04-09 18:37 | PHARMACY PROGRESS NOTE ---
Best Possible Medication History Admit Date and Time: 04/09/24 [id number] Processed by: Pharmacy (MEDICATION RECONCILIATION COMPLETED BY RETIREMENT ASSISTANTSMILEY) Medications reviewed in ED?: No Medication History completed: Yes Patient Interview: Completed Secondary Source(s): Insurance records [facility] Statement: As the person ultimately responsible for medication therapy, providers are able to order a medication from an existing home medication list in [facility] via the "Reconcile Routine" prior to Confirmation of that medication by technical support coordinator. Such practice is discouraged except when the physician, in their clinical judgment, deems that a medical need exists for a medication without regard to previous use.
--- NOTE | 2024-04-09 19:57 | CT Report ---
PROCEDURE: CT Head WO INDICATIONS: LT SIDED WEAKNESS TECHNIQUE: Noncontrast 4.5 mm thick angled axial sections acquired from the foramen magnum to the vertex. For r adiation dose reduction, the following was used: automated exposure control, adjustment of mA and/or kV according to patient size. COMPARISON: 06/20/2020 FINDINGS: Image quality: Excellent. CSF spaces: Basal cisterns are patent. No extra-axial fluid collections. Ventricles are normal in size and shape. Brain: No midline shift. No intracranial masses or hemorrhage. Rivero-white matter interface is norm al. Leukoaraiosis, commonly caused by chronic small vessel ischemic disease. Age-related volume loss . Skull and face: Calvarium and visualized facial bones are intact, without suspicious lesions. Sinuses: Visualized sinuses and mastoids are clear. IMPRESSION: No acute intracranial pathology. Findings are concordant with preliminary interpretation provided by [facility]. Reviewed by: Gunner Bond MD on 04/09/2024 7:56 PM PDT Approved by: Gunner Bond MD on 04/09/2024 7:56 PM PDT Station ID: [id number]
--- NOTE | 2024-04-09 20:22 | CT Report ---
PROCEDURE: CT Angio Head/Neck INDICATIONS: LT SIDED WEAKNESS TECHNIQUE: After the administration of intravenous contrast, 1 mm thick sections acquired from the aortic arch t hrough the [place]. 3-dimensional lvhysrx-yaytmdjvi-efsgycbqrv (MIP) and/or volume renderin g reformats were acquired of the central intracranial vasculature and neck separately. For radiation dose reduction, the following was used: automated exposure control, adjustment of mA and/or kV acco rding to patient size. CONTRAST: OMNI 320 COMPARISON: Same day head CT. FINDINGS: Image quality: Diagnostic. HEAD CT: No significant change from same day head CT. HEAD CT ANGIOGRAPHY: Anterior circulation: Intracranial internal carotid arteries are normal in size and flow. The flow within the paired anterior cerebral arteries is normal and symmetric. The flow within the middle cer ebral arteries is normal and symmetric. The anterior communicating artery is seen. No aneurysms are seen. Posterior circulation: Visualized portions of the vertebral arteries demonstrate normal caliber, and join to form a normal appearing basilar artery. Flow within the posterior cerebral arteries is norm al and symmetric. No aneurysms are seen. NECK CT ANGIOGRAPHY: Carotid system: The great vessels demonstrate a conventional anatomy as they arise from the aortic a rch. The origins of the common carotid arteries appear patent. The common carotid arteries demonstr ate normal caliber and courses. The bifurcation regions are both widely patent. The internal caroti d arteries demonstrate normal calibers and courses. Posterior circulation: The origins of the vertebral arteries both appear widely patent. The more park perior extracranial portions of both vertebral arteries also demonstrate normal courses and calibers. They join to form a normal appearing basilar artery. Soft tissues: Visualized neck soft tissues demonstrate no suspicious abnormalities. Bones: No suspicious bony lesions. Visualized cervical spine appears normally aligned. IMPRESSION: No significant intracranial arterial abnormality is seen. No significant abnormality is seen within the arteries of the neck. Findings are concordant with preliminary interpretation provided by [facility]. The estimate of stenosis included in the report of the imaging study was calculated using the NASCET method Reviewed by: Gunner Bond MD on 04/09/2024 8:21 PM PDT Approved by: Gunner Bond MD on 04/09/2024 8:21 PM PDT Station ID: [id number]
[2024-04-09] MEDS: ATORVASTATIN 10 MG TABLET PO SCH (21:08)
[2024-04-09] MEDS: carvediloL 12.5 MG TABLET PO SCH (21:08)
[2024-04-09 21:26] LABS: BILIRUBIN,URINE NEGATIVE (NEGATIVE); CLARITY,URINE CLEAR (CLEAR); GLUCOSE, URINE (UA) NEGATIVE (NEGATIVE); KETONES,URINE (UA) NEGATIVE (NEGATIVE); LEUKOCYTE ESTERASE, URINE NEGATIVE (NEGATIVE); NITRITE,URINE NEGATIVE (NEGATIVE); OCCULT BLOOD,URINE NEGATIVE (NEGATIVE); PH,URINE 7.5 PH (5.0-7.5); PROTEIN,URINE NEGATIVE (NEGATIVE); UROBILINOGEN,URINE 0.2 (NORMAL) E.U./dL (NORMAL)
[2024-04-09 21:28] LABS: INR 1.3 (0.8-1.2); PT - PROTHROMBIN TIME 13.8 secs (9.9-12.6)
[2024-04-09 21:29] LABS: BASOPHILS % (AUTO) 0.4 %; EOSINOPHILS % (AUTO) 0.6 %; HCT - HEMATOCRIT 37.7 % (37.0-47.0); HGB - HEMOGLOBIN 12.4 g/dL (12.0-16.0); LYMPHOCYTES # (AUTO) 0.9 10^3/uL (1.5-3.5); LYMPHOCYTES % (AUTO) 16.8 %; MEAN CORPUSCULAR HGB CONC 32.9 g/dL (32.0-36.0); MEAN CORPUSCULAR VOLUME 97.2 fL (81.0-99.0); MONOCYTES # (AUTO) 0.4 10^3/uL (0.0-1.0); MONOCYTES % (AUTO) 7.7 %; NEUTROPHILS # (AUTO) 3.8 10^3/uL (1.5-6.6); NEUTROPHILS % (AUTO) 74.3 %; PLT - PLATELET COUNT 169 10^3/uL (130-450); RED BLOOD COUNT 3.88 10^6/uL (4.20-5.40); RED CELL DISTRIBUTION WIDTH 11.9 % (12.0-15.0); WHITE BLOOD COUNT 5.1 x10^3/uL (4.8-10.8)
[2024-04-09 21:30] LABS: ALBUMIN 3.9 g/dL (3.2-5.5); ALBUMIN/GLOBULIN RATIO 1.4 (1.0-2.2); BILIRUBIN,TOTAL 0.6 mg/dL (0.2-1.0); CALCIUM 9.3 mg/dL (8.5-10.3); CREATININE 0.9 mg/dL (0.6-1.3); POTASSIUM 3.7 mmol/L (3.5-4.5); TOTAL PROTEIN 6.7 g/dL (6.4-8.9)
[2024-04-10] MEDS: ASPIRIN CHEW 81 MG TABLET PO SCH (08:11)
[2024-04-10] MEDS: ENOXAPARIN 40 MG/0.4 ML SYRINGE SUBQ SCH (08:11)
--- NOTE | 2024-04-10 08:18 | PROVIDER PROGRESS NOTE ---
Subjective Prog Note Date Prog Note Date: 04/10/24 Prog Note Time: 08:06 Subjective Pt reports feeling: No change Subjective: Patient states that she feels the same. Her left side is still weak, her arm and her leg. She appears ill anxious about the thought of staying here longer than a day. She understands that she needs an echocardiogram. She is excited at the prospect of physical therapy. She denies any fevers, chills, cough, chest pain. She has had no vision changes. Daughter also spoken with and updated - Kadnice - [phone]. Current Medications Current Medications Current Medications: Current Medications Generic Name Dose Route Start Last Admin Trade Name Freq PRN Reason Stop Dose Admin Aspirin 81 mg 04/10/24 09:00 Aspirin Chew 81 Mg Tablet PO DAILY JOSE D Atorvastatin Calcium 10 mg 04/09/24 21:00 04/09/24 21:08 Atorvastatin 10 Mg Tablet PO 10 mg QPM JOSE D Administration Carvedilol 25 mg 04/09/24 21:00 04/09/24 21:08 Carvedilol 12.5 Mg Tablet PO 25 mg BID JOSE D Administration Enoxaparin Sodium 40 mg 04/10/24 09:00 Enoxaparin 40 Mg/0.4 Ml Syringe SUBQ DAILY JOSE D Sodium Chloride 10 ml 04/09/24 16:33 Sodium Chloride Flush 0.9% 10 Ml Syringe IVP PRN PRN NEEDED PER PROVIDER ORDERS Sodium Chloride 10 ml 04/09/24 17:00 04/10/24 00:42 Sodium Chloride Flush 0.9% 10 Ml Syringe IVP 10 ml 0100,0900,1700 JOSE D Administration Objective Vital Signs/Intake & Output Reviewed Vital Signs: Yes Vital Signs: Vital Signs x48h Temp Pulse Resp BP Pulse Ox 04/10/24 03:55 36.7 C 66 16 161/73 H 98 Intake & Output: Intake & Output 04/08/24 04/09/24 04/10/24 04/11/24 05:59 05:59 05:59 05:59 Intake Total 60 / 60 Balance 60 / 60 Weight (kg) 44.5 kg Objective General Appearance: positive No acute distress, Alert and Anxious Eyes Bilateral: positive PERRL and EOMI Respiratory: positive Chest non-tender, No respiratory distress and Breath sounds nml Cardiovascular: positive Regular rate & rhythm and No murmur Abdomen: positive Non-tender and No distention Skin: positive Dry and Pallor Neurologic/Psychiatric: positive Oriented x3, Weakness (Left sided UE and LE 4/5) and Facial droop (Mild left ) Lab Results 04/09/24 12:25 04/09/24 12:25 Other Labs: Lab Results x24hrs 04/09/24 04/09/24 Range/Units 14:00 12:25 WBC 5.1 (4.8-10.8) x10^3/uL RBC 3.88 L (4.20-5.40) 10^6/uL Hgb 12.4 (12.0-16.0) g/dL Hct 37.7 (37.0-47.0) % MCV 97.2 (81.0-99.0) fL MCH 32.0 H (27.0-31.0) pg MCHC 32.9 (32.0-36.0) g/dL RDW 11.9 L (12.0-15.0) % Plt Count 169 (130-450) 10^3/uL MPV 10.0 (7.9-10.8) fL Neut # (Auto) 3.8 (1.5-6.6) 10^3/uL Lymph # (Auto) 0.9 L (1.5-3.5) 10^3/uL [place] # (Auto) 0.4 (0.0-1.0) 10^3/uL Eos # (Auto) 0.0 (0.0-0.7) 10^3/uL Baso # (Auto) 0.0 (0.0-0.1) 10^3/uL Absolute Nucleated RBC 0.00 x10^3/uL Nucleated RBC % 0.0 /100WBC PT 13.8 H (9.9-12.6) secs INR 1.3 H (0.8-1.2) Sodium 139 (135-145) mmol/L Potassium 3.7 (3.5-4.5) mmol/L Chloride 104 (101-111) mmol/L Carbon Dioxide 32 (21-32) mmol/L Anion Gap 3.0 L (6-13) BUN 12 (6-20) mg/dL Creatinine 0.9 (0.6-1.3) mg/dL Estimated GFR (MDRD) 60 L (>89) Glucose 97 (74-104) mg/dL Calcium 9.3 (8.5-10.3) mg/dL Total Bilirubin 0.6 (0.2-1.0) mg/dL AST 30 (10-42) IU/L ALT 22 (10-60) IU/L Alkaline Phosphatase 68 (42-121) IU/L Total Protein 6.7 (6.4-8.9) g/dL Albumin 3.9 (3.2-5.5) g/dL Globulin 2.8 (2.1-4.2) g/dL Albumin/Globulin Ratio 1.4 (1.0-2.2) Lipase 23 (11-82) U/L Urine Color YELLOW Urine Clarity CLEAR (CLEAR) Urine pH 7.5 (5.0-7.5) PH Ur Specific [place] 1.010 (1.002-1.030) Urine Protein NEGATIVE (NEGATIVE) mg/dL Urine Glucose (UA) NEGATIVE (NEGATIVE) mg/dL Urine Ketones NEGATIVE (NEGATIVE) mg/dL Urine Occult Blood NEGATIVE (NEGATIVE) Urine Nitrite NEGATIVE (NEGATIVE) Urine Bilirubin NEGATIVE (NEGATIVE) Urine Urobilinogen 0.2 (NORMAL) (NORMAL) E.U./dL Ur Leukocyte Esterase NEGATIVE (NEGATIVE) Ur Microscopic Review NOT INDICATED Urine Culture Comments NOT INDICATED Diagnostic Imaging Diagnostic Imaging Results: positive Final report reviewed Diagnostic Imaging Comments: MRI brain reviewed from 04/09 acute infarct of the right basal ganglia and ramos radiata. CT angiography reviewed from o significant arterial abnormality, appropriate flow, no stenosis. Assessment/Plan Problem List (1) Acute CVA (cerebrovascular accident): Impression: MRI reviewedacute infarct of right basal ganglia and ramos radiata from 04/09. Out of window for permissive hypertension, continue antihypertensives. Echo ordered, pending. Continue cardiac telemetry; no arrhythmias noted at this time. Physical therapy, Occupational Therapy ordered, evaluation pending. (2) Left-sided weakness: Impression: See above. (3) Hypertension: Impression: Home Coreg continued; we will continue to monitor blood pressures today, if remain above 150, will double dose. (4) Hyperlipidemia: Impression: Continue home statin.
[2024-04-11] MEDS: polyethylene glycoL 3350 17 GM PACKET PO SCH (08:09)
--- NOTE | 2024-04-11 09:06 | PROVIDER PROGRESS NOTE ---
Subjective Prog Note Date Prog Note Date: 04/11/24 Prog Note Time: 09:02 Subjective Subjective: Patient states she feels about the same; her left side is still weak. She states that physical therapy was good yesterday. She did have some difficulty with balance and walking upstairs. After discussing physical therapy recommendations with her, [facility] SNF, patient said that she would prefer to go home. Discussed her home situation, and she did state that she has 5 steps of stairs when entering. When asked if this was a concern, she stated that she would manage, and would still prefer outpatient physical therapy. She does live alone, but states that her daughters would come by in the beginning. Open to discussing further. She denies any fevers, chills, cough, chest pain. She has had no vision changes. At a later time, patient was agreeable to SNF. Current Medications Current Medications Current Medications: Current Medications Generic Name Dose Route Start Last Admin Trade Name Freq PRN Reason Stop Dose Admin Aspirin 81 mg 04/10/24 09:00 04/11/24 08:09 Aspirin Chew 81 Mg Tablet PO 81 mg DAILY JOSE D Administration Atorvastatin Calcium 10 mg 04/09/24 21:00 04/10/24 20:24 Atorvastatin 10 Mg Tablet PO 10 mg QPM JOSE D Administration Carvedilol 25 mg 04/09/24 21:00 04/11/24 08:09 Carvedilol 12.5 Mg Tablet PO 25 mg BID JOSE D Administration Enoxaparin Sodium 40 mg 04/10/24 09:00 04/11/24 08:09 Enoxaparin 40 Mg/0.4 Ml Syringe SUBQ 40 mg DAILY JOSE D Administration Polyethylene Glycol 17 gm 04/11/24 09:00 04/11/24 08:09 Polyethylene Glycol 3350 17 Gm Packet PO 17 gm DAILY JOSE D Administration Sodium Chloride 10 ml 04/09/24 16:33 Sodium Chloride Flush 0.9% 10 Ml Syringe IVP PRN PRN NEEDED PER PROVIDER ORDERS Sodium Chloride 10 ml 04/09/24 17:00 04/11/24 00:24 Sodium Chloride Flush 0.9% 10 Ml Syringe IVP 10 ml 0100,0900,1700 JOSE D Administration Objective Vital Signs/Intake & Output Reviewed Vital Signs: Yes Vital Signs: Vital Signs x48h Temp Pulse Resp BP Pulse Ox 04/11/24 08:25 36.7 C 65 16 154/68 H 98 Intake & Output: Intake & Output 04/09/24 04/10/24 04/11/24 04/12/24 05:59 05:59 05:59 05:59 Intake Total 922 / 922 720 / 720 Balance 922 922 720 / 720 Weight (kg) 44.5 kg Objective General Appearance: positive No acute distress, Alert and Anxious Eyes Bilateral: positive PERRL and EOMI Respiratory: positive Chest non-tender, No respiratory distress and Breath sounds nml Cardiovascular: positive Regular rate & rhythm and No murmur Abdomen: positive Non-tender and No distention Skin: positive Dry and Pallor Neurologic/Psychiatric: positive Oriented x3, Weakness (Left sided UE and LE 4/5) and Facial droop (Mild left ) Lab Results 04/09/24 12:25 04/09/24 12:25 Other Labs: Lab Results x24hrs 04/09/24 04/09/24 Range/Units 14:00 12:25 WBC 5.1 (4.8-10.8) x10^3/uL RBC 3.88 L (4.20-5.40) 10^6/uL Hgb 12.4 (12.0-16.0) g/dL Hct 37.7 (37.0-47.0) % MCV 97.2 (81.0-99.0) fL MCH 32.0 H (27.0-31.0) pg MCHC 32.9 (32.0-36.0) g/dL RDW 11.9 L (12.0-15.0) % Plt Count 169 (130-450) 10^3/uL MPV 10.0 (7.9-10.8) fL Neut # (Auto) 3.8 (1.5-6.6) 10^3/uL Lymph # (Auto) 0.9 L (1.5-3.5) 10^3/uL [place] # (Auto) 0.4 (0.0-1.0) 10^3/uL Eos # (Auto) 0.0 (0.0-0.7) 10^3/uL Baso # (Auto) 0.0 (0.0-0.1) 10^3/uL Absolute Nucleated RBC 0.00 x10^3/uL Nucleated RBC % 0.0 /100WBC PT 13.8 H (9.9-12.6) secs INR 1.3 H (0.8-1.2) Sodium 139 (135-145) mmol/L Potassium 3.7 (3.5-4.5) mmol/L Chloride 104 (101-111) mmol/L Carbon Dioxide 32 (21-32) mmol/L Anion Gap 3.0 L (6-13) BUN 12 (6-20) mg/dL Creatinine 0.9 (0.6-1.3) mg/dL Estimated GFR (MDRD) 60 L (>89) Glucose 97 (74-104) mg/dL Calcium 9.3 (8.5-10.3) mg/dL Total Bilirubin 0.6 (0.2-1.0) mg/dL AST 30 (10-42) IU/L ALT 22 (10-60) IU/L Alkaline Phosphatase 68 (42-121) IU/L Total Protein 6.7 (6.4-8.9) g/dL Albumin 3.9 (3.2-5.5) g/dL Globulin 2.8 (2.1-4.2) g/dL Albumin/Globulin Ratio 1.4 (1.0-2.2) Lipase 23 (11-82) U/L Urine Color YELLOW Urine Clarity CLEAR (CLEAR) Urine pH 7.5 (5.0-7.5) PH Ur Specific [place] 1.010 (1.002-1.030) Urine Protein NEGATIVE (NEGATIVE) mg/dL Urine Glucose (UA) NEGATIVE (NEGATIVE) mg/dL Urine Ketones NEGATIVE (NEGATIVE) mg/dL Urine Occult Blood NEGATIVE (NEGATIVE) Urine Nitrite NEGATIVE (NEGATIVE) Urine Bilirubin NEGATIVE (NEGATIVE) Urine Urobilinogen 0.2 (NORMAL) (NORMAL) E.U./dL Ur Leukocyte Esterase NEGATIVE (NEGATIVE) Ur Microscopic Review NOT INDICATED Urine Culture Comments NOT INDICATED Diagnostic Imaging Diagnostic Imaging Results: positive Final report reviewed Diagnostic Imaging Comments: MRI brain reviewed from 04/09 acute infarct of the right basal ganglia and ramos radiata. CT angiography reviewed from o significant arterial abnormality, appropriate flow, no stenosis. Assessment/Plan Problem List (1) Acute CVA (cerebrovascular accident): Impression: MRI reviewedacute infarct of right basal ganglia and ramos radiata from 04/09. Out of window for permissive hypertension, continue antihypertensives. Echo ordered, pending. Continue cardiac telemetry; no arrhythmias noted at this time. Physical therapy, Occupational Therapy ordered - reccomend SNF. Patient now agreeable; referrals sent. (2) Left-sided weakness: Impression: See above. (3) Hypertension: Impression: Awaiting ECHO. If EF normal, will start CCB. Home Coreg continued. Due to persistently elevated blood pressure, will double dose. (4) Hyperlipidemia: Impression: Continue home statin.
[2024-04-11] MEDS: carvediloL 12.5 MG TABLET PO ONE (10:27)
[2024-04-11] MEDS: NIFEdipine ER 30 MG TABLET PO SCH (16:12)
--- NOTE | 2024-04-11 17:10 | CT Report ---
PROCEDURE: CT Chest WO INDICATIONS: LT SIDED WEAKNESS TECHNIQUE: A CT scan of the chest was performed. Intravenous contrast media was not administered. Images were re corded and evaluated at appropriate window settings. Reformats: axial MIP of the chest, coronal and s agittal. For radiation dose reduction, the following was used: automated exposure control, adjustment of mA and/or kV according to patient size. COMPARISON: None FINDINGS: Image quality: Diagnostic Lungs and pleura:Scattered scarring and atelectasis. No dense airspace disease. No pneumothorax. No p leural effusions. There are micronodules and granulomas, more numerous on the right side, for example on the right axial image , . These can be followed in one year with optional chest CT for high-risk patients. Mediastinum, heart, and esophagus: Coronary calcifications. Annular calcifications. No pathologic lym ph nodes by size criteria. Mild nonspecific distal esophageal wall thickening. Chest wall and thyroid: Unremarkable Upper abdomen: No gross abnormality on these noncontrast images. Vascular calcifications are seen. No dular appearing renal calculi are probably also present. Bones: Degenerative findings. Suspected old sternal deformity Age-indeterminate wedging of multiple thoracic vertebral bodies. IMPRESSION: Limited noncontrast CT, without acute thoracic abnormality. Multiple granulomas and pulmonary micronodules, which can be followed with optional chest CT in one y ear if the patient is considered high risk. Nonobstructing renal calculi partially seen. Other findings above. Reviewed by: Porfirio Olivo MD on 04/11/2024 5:09 PM PDT Approved by: Porfirio Olivo MD on 04/11/2024 5:09 PM PDT Station ID: [id number]
[2024-04-11] MEDS: carvediloL 12.5 MG TABLET PO SCH (22:39)
--- NOTE | 2024-04-12 08:44 | PROVIDER PROGRESS NOTE ---
Subjective Prog Note Date Prog Note Date: 04/12/24 Prog Note Time: 08:41 Subjective Subjective: Patient states that she feels better. She feels like her left side is getting stronger. She does feel off balance when she is walking, especially on the stairs with a physical therapist. She is agreeable to SNF at this time. She understands that it is going to make her stronger. Her priorities are being independent again, and being able to dance. This patient's stay is approaching 96 hours at this critical access hospital. They have made significant improvements. There is no need for services beyond what this hospital can provide. They are continuing to improve but due to medical necessity will stay beyond 96 hours until a SNF is available. Current Medications Current Medications Current Medications: Current Medications Generic Name Dose Route Start Last Admin Trade Name Freq PRN Reason Stop Dose Admin Aspirin 81 mg 04/10/24 09:00 04/11/24 08:09 Aspirin Chew 81 Mg Tablet PO 81 mg DAILY JOSE D Administration Atorvastatin Calcium 10 mg 04/09/24 21:00 04/11/24 22:40 Atorvastatin 10 Mg Tablet PO 10 mg QPM JOSE D Administration Carvedilol 50 mg 04/11/24 21:00 04/11/24 22:39 Carvedilol 12.5 Mg Tablet PO 50 mg BID JOSE D Administration Enoxaparin Sodium 40 mg 04/10/24 09:00 04/11/24 08:09 Enoxaparin 40 Mg/0.4 Ml Syringe SUBQ 40 mg DAILY JOSE D Administration Nifedipine 30 mg 04/11/24 15:15 04/11/24 16:12 Nifedipine Er 30 Mg Tablet PO 30 mg DAILY JOSE D Administration Polyethylene Glycol 17 gm 04/11/24 09:00 04/11/24 08:09 Polyethylene Glycol 3350 17 Gm Packet PO 17 gm DAILY JOSE D Administration Sodium Chloride 10 ml 04/09/24 16:33 Sodium Chloride Flush 0.9% 10 Ml Syringe IVP PRN PRN NEEDED PER PROVIDER ORDERS Sodium Chloride 10 ml 04/09/24 17:00 04/12/24 01:09 Sodium Chloride Flush 0.9% 10 Ml Syringe IVP 10 ml 0100,0900,1700 JOSE D Administration Objective Vital Signs/Intake & Output Reviewed Vital Signs: Yes Vital Signs: Vital Signs x48h Pulse Resp BP Pulse Ox 04/12/24 08:17 62 18 182/82 H 98 Intake & Output: Intake & Output 04/10/24 04/11/24 04/12/24 04/13/24 05:59 05:59 05:59 05:59 Intake Total 922 / 922 1680 / 1680 Balance 922 922 1680 / 1680 Weight (kg) 44.5 kg Objective General Appearance: positive No acute distress, Alert and Anxious Eyes Bilateral: positive PERRL and EOMI Respiratory: positive Chest non-tender, No respiratory distress and Breath sounds nml Cardiovascular: positive Regular rate & rhythm and No murmur Abdomen: positive Non-tender and No distention Skin: positive Dry and Pallor Neurologic/Psychiatric: positive Oriented x3, Weakness (Left sided UE and LE 4/5) and Facial droop (Mild left ) Lab Results 04/09/24 12:25 04/09/24 12:25 Other Labs: Lab Results x24hrs 04/09/24 04/09/24 Range/Units 14:00 12:25 WBC 5.1 (4.8-10.8) x10^3/uL RBC 3.88 L (4.20-5.40) 10^6/uL Hgb 12.4 (12.0-16.0) g/dL Hct 37.7 (37.0-47.0) % MCV 97.2 (81.0-99.0) fL MCH 32.0 H (27.0-31.0) pg MCHC 32.9 (32.0-36.0) g/dL RDW 11.9 L (12.0-15.0) % Plt Count 169 (130-450) 10^3/uL MPV 10.0 (7.9-10.8) fL Neut # (Auto) 3.8 (1.5-6.6) 10^3/uL Lymph # (Auto) 0.9 L (1.5-3.5) 10^3/uL [place] # (Auto) 0.4 (0.0-1.0) 10^3/uL Eos # (Auto) 0.0 (0.0-0.7) 10^3/uL Baso # (Auto) 0.0 (0.0-0.1) 10^3/uL Absolute Nucleated RBC 0.00 x10^3/uL Nucleated RBC % 0.0 /100WBC PT 13.8 H (9.9-12.6) secs INR 1.3 H (0.8-1.2) Sodium 139 (135-145) mmol/L Potassium 3.7 (3.5-4.5) mmol/L Chloride 104 (101-111) mmol/L Carbon Dioxide 32 (21-32) mmol/L Anion Gap 3.0 L (6-13) BUN 12 (6-20) mg/dL Creatinine 0.9 (0.6-1.3) mg/dL Estimated GFR (MDRD) 60 L (>89) Glucose 97 (74-104) mg/dL Calcium 9.3 (8.5-10.3) mg/dL Total Bilirubin 0.6 (0.2-1.0) mg/dL AST 30 (10-42) IU/L ALT 22 (10-60) IU/L Alkaline Phosphatase 68 (42-121) IU/L Total Protein 6.7 (6.4-8.9) g/dL Albumin 3.9 (3.2-5.5) g/dL Globulin 2.8 (2.1-4.2) g/dL Albumin/Globulin Ratio 1.4 (1.0-2.2) Lipase 23 (11-82) U/L Urine Color YELLOW Urine Clarity CLEAR (CLEAR) Urine pH 7.5 (5.0-7.5) PH Ur Specific [place] 1.010 (1.002-1.030) Urine Protein NEGATIVE (NEGATIVE) mg/dL Urine Glucose (UA) NEGATIVE (NEGATIVE) mg/dL Urine Ketones NEGATIVE (NEGATIVE) mg/dL Urine Occult Blood NEGATIVE (NEGATIVE) Urine Nitrite NEGATIVE (NEGATIVE) Urine Bilirubin NEGATIVE (NEGATIVE) Urine Urobilinogen 0.2 (NORMAL) (NORMAL) E.U./dL Ur Leukocyte Esterase NEGATIVE (NEGATIVE) Ur Microscopic Review NOT INDICATED Urine Culture Comments NOT INDICATED Diagnostic Imaging Diagnostic Imaging Results: positive Final report reviewed Diagnostic Imaging Comments: MRI brain reviewed from 04/09 acute infarct of the right basal ganglia and ramos radiata. CT angiography reviewed from o significant arterial abnormality, appropriate flow, no stenosis. Assessment/Plan Problem List (1) Acute CVA (cerebrovascular accident): Impression: MRI reviewedacute infarct of right basal ganglia and ramos radiata from 04/09. Echo reviewed - Normal left ventricular size and function, EF of 60%. Mild diastolic dysfunction. Left atrium is mildly dilated. Normal right ventricular size and function.. Continue cardiac telemetry; no arrhythmias noted at this time. Physical therapy, Occupational Therapy ordered - reccomend SNF. Patient now agreeable; referrals sent. (2) Left-sided weakness: Impression: See above. (3) Hypertension: Impression: Patient does not want TOVA/ARB due to feeling weak and fatigued on it previously. Started Procardia with good reduction of blood pressure. Home Coreg doubled. (4) Hyperlipidemia: Impression: Continue home statin.
[2024-04-13] MEDS: NIFEdipine ER 30 MG TABLET PO SCH (08:30)
--- NOTE | 2024-04-13 08:44 | PROVIDER PROGRESS NOTE ---
Subjective Subjective Subjective: Patient states that she feels better today. She has been doing the exercises that the physical therapist told her, and feels like some of her strength is returning on her left side. She states that she has been eating and drinking well, but does state that she only eats 1 meal at home. She is agreeable to blood pressure medication changes that we have making here. She did get her daughter to bring in her laptop, so she has been completing some work. She was advised that social work said that although she has a bed available, transfer will likely happen Monday due to authorization. This patient's stay is approaching 96 hours at this critical access hospital. They have made significant improvements. There is no need for services beyond what this hospital can provide. They are continuing to improve but due to medical necessity will stay beyond 96 hours until a SNF is available. Current Medications Current Medications Current Medications: Current Medications Generic Name Dose Route Start Last Admin Trade Name Freq PRN Reason Stop Dose Admin Aspirin 81 mg 04/10/24 09:00 04/13/24 08:31 Aspirin Chew 81 Mg Tablet PO 81 mg DAILY JOSE D Administration Atorvastatin Calcium 10 mg 04/09/24 21:00 04/12/24 21:09 Atorvastatin 10 Mg Tablet PO 10 mg QPM JOSE D Administration Carvedilol 50 mg 04/11/24 21:00 04/13/24 08:30 Carvedilol 12.5 Mg Tablet PO 50 mg BID JOSE D Administration Enoxaparin Sodium 40 mg 04/10/24 09:00 04/13/24 08:29 Enoxaparin 40 Mg/0.4 Ml Syringe SUBQ 40 mg DAILY JOSE D Administration Nifedipine 60 mg 04/13/24 09:00 04/13/24 08:30 Nifedipine Er 30 Mg Tablet PO 60 mg DAILY JOSE D Administration Polyethylene Glycol 17 gm 04/11/24 09:00 04/13/24 08:29 Polyethylene Glycol 3350 17 Gm Packet PO 17 gm DAILY JOSE D Administration Sodium Chloride 10 ml 04/09/24 16:33 Sodium Chloride Flush 0.9% 10 Ml Syringe IVP PRN PRN NEEDED PER PROVIDER ORDERS Sodium Chloride 10 ml 04/09/24 17:00 04/13/24 08:31 Sodium Chloride Flush 0.9% 10 Ml Syringe IVP 10 ml 0100,0900,1700 JOSE D Administration Objective Vital Signs/Intake & Output Reviewed Vital Signs: Yes Vital Signs: Vital Signs x48h Temp Pulse Resp BP Pulse Ox 04/13/24 08:39 98.1 F 68 18 197/91 H 97 04/13/24 08:27 98.4 F 64 24 188/81 H 98 Intake & Output: Intake & Output 04/11/24 04/12/24 04/13/24 04/14/24 05:59 05:59 05:59 05:59 Intake Total 922 / 922 1680 / 1680 920 / 920 0 / 0 Balance 922 / 922 1680 / 1680 920 / 920 0 / 0 Objective General Appearance: positive No acute distress, Alert and Anxious Eyes Bilateral: positive PERRL and EOMI Respiratory: positive Chest non-tender, No respiratory distress and Breath sounds nml Cardiovascular: positive Regular rate & rhythm and No murmur Abdomen: positive Non-tender and No distention Skin: positive Dry and Pallor Neurologic/Psychiatric: positive Oriented x3, Weakness (Left sided UE and LE 4/5) and Facial droop (Mild left ) Lab Results 04/09/24 12:25 04/09/24 12:25 Other Labs: Lab Results x24hrs 04/09/24 04/09/24 Range/Units 14:00 12:25 WBC 5.1 (4.8-10.8) x10^3/uL RBC 3.88 L (4.20-5.40) 10^6/uL Hgb 12.4 (12.0-16.0) g/dL Hct 37.7 (37.0-47.0) % MCV 97.2 (81.0-99.0) fL MCH 32.0 H (27.0-31.0) pg MCHC 32.9 (32.0-36.0) g/dL RDW 11.9 L (12.0-15.0) % Plt Count 169 (130-450) 10^3/uL MPV 10.0 (7.9-10.8) fL Neut # (Auto) 3.8 (1.5-6.6) 10^3/uL Lymph # (Auto) 0.9 L (1.5-3.5) 10^3/uL [place] # (Auto) 0.4 (0.0-1.0) 10^3/uL Eos # (Auto) 0.0 (0.0-0.7) 10^3/uL Baso # (Auto) 0.0 (0.0-0.1) 10^3/uL Absolute Nucleated RBC 0.00 x10^3/uL Nucleated RBC % 0.0 /100WBC PT 13.8 H (9.9-12.6) secs INR 1.3 H (0.8-1.2) Sodium 139 (135-145) mmol/L Potassium 3.7 (3.5-4.5) mmol/L Chloride 104 (101-111) mmol/L Carbon Dioxide 32 (21-32) mmol/L Anion Gap 3.0 L (6-13) BUN 12 (6-20) mg/dL Creatinine 0.9 (0.6-1.3) mg/dL Estimated GFR (MDRD) 60 L (>89) Glucose 97 (74-104) mg/dL Calcium 9.3 (8.5-10.3) mg/dL Total Bilirubin 0.6 (0.2-1.0) mg/dL AST 30 (10-42) IU/L ALT 22 (10-60) IU/L Alkaline Phosphatase 68 (42-121) IU/L Total Protein 6.7 (6.4-8.9) g/dL Albumin 3.9 (3.2-5.5) g/dL Globulin 2.8 (2.1-4.2) g/dL Albumin/Globulin Ratio 1.4 (1.0-2.2) Lipase 23 (11-82) U/L Urine Color YELLOW Urine Clarity CLEAR (CLEAR) Urine pH 7.5 (5.0-7.5) PH Ur Specific [place] 1.010 (1.002-1.030) Urine Protein NEGATIVE (NEGATIVE) mg/dL Urine Glucose (UA) NEGATIVE (NEGATIVE) mg/dL Urine Ketones NEGATIVE (NEGATIVE) mg/dL Urine Occult Blood NEGATIVE (NEGATIVE) Urine Nitrite NEGATIVE (NEGATIVE) Urine Bilirubin NEGATIVE (NEGATIVE) Urine Urobilinogen 0.2 (NORMAL) (NORMAL) E.U./dL Ur Leukocyte Esterase NEGATIVE (NEGATIVE) Ur Microscopic Review NOT INDICATED Urine Culture Comments NOT INDICATED Diagnostic Imaging Diagnostic Imaging Results: positive Final report reviewed Diagnostic Imaging Comments: MRI brain reviewed from 04/09 acute infarct of the right basal ganglia and ramos radiata. CT angiography reviewed from o significant arterial abnormality, appropriate flow, no stenosis. Assessment/Plan Problem List (1) Acute CVA (cerebrovascular accident): Impression: MRI reviewedacute infarct of right basal ganglia and ramos radiata from 04/09. Echo reviewed - Normal left ventricular size and function, EF of 60%. Mild diastolic dysfunction. Left atrium is mildly dilated. Normal right ventricular size and function. Continue cardiac telemetry; no arrhythmias noted at this time. Physical therapy, Occupational Therapy ordered - reccomend SNF. Patient now agreeable; referrals sent. Bed available for Monday. (2) Left-sided weakness: Impression: See above. (3) Hypertension: Impression: Patient does not want TOVA/ARB due to feeling weak and fatigued on it previously. Started Procardia with good reduction of blood pressure. Increase dose to 60 mg today. Home Coreg doubled. (4) Hyperlipidemia: Impression: Continue home statin.
[2024-04-13] MEDS: hydrALAZINE INJ 20 MG/ML VIAL IVP ONE (11:14)
[2024-04-13] MEDS ORDERED: ZINC OXIDE 12% OINT 57 GM TUBE TOP PRN (16:59)
[2024-04-14 05:03] LABS: MEAN CORPUSCULAR HEMOGLOBIN 31.6 pg (27.0-31.0); MEAN CORPUSCULAR HGB CONC 32.4 g/dL (32.0-36.0); MEAN CORPUSCULAR VOLUME 97.7 fL (81.0-99.0); MEAN PLATELET VOLUME 10.5 fL (7.9-10.8); RED BLOOD COUNT 3.48 10^6/uL (4.20-5.40); WHITE BLOOD COUNT 3.9 x10^3/uL (4.8-10.8)
[2024-04-14 05:18] LABS: CALCIUM 8.9 mg/dL (8.5-10.3); CREATININE 0.8 mg/dL (0.6-1.3)
[2024-04-14] MEDS ORDERED: ZINC OXIDE 20% OINT 30 GM TUBE TOP PRN (07:32)
--- NOTE | 2024-04-14 08:12 | PROVIDER PROGRESS NOTE ---
Subjective Subjective Subjective: Patient states that she feels like her left-sided weakness continues to improve. Has been doing the physical therapy exercises that she was told. She states that she has been eating and drinking well. She is happy that she has her laptop and is able to complete work. Yesterday, we did increase her Procardia to 60 mg. She said this made her feel little bit funny. Her blood pressure did run a little bit lower on this higher dose. She started feeling a little bit unsteady with it. She was advised that social work said that although she has a bed available, transfer will likely happen Monday due to authorization. This patient's stay is approaching 96 hours at this critical access hospital. They have made significant improvements. There is no need for services beyond what this hospital can provide. They are continuing to improve but due to medical necessity will stay beyond 96 hours until a SNF is available. Current Medications Current Medications Current Medications: Current Medications Generic Name Dose Route Start Last Admin Trade Name Freq PRN Reason Stop Dose Admin Aspirin 81 mg 04/10/24 09:00 04/13/24 08:31 Aspirin Chew 81 Mg Tablet PO 81 mg DAILY JOSE D Administration Atorvastatin Calcium 10 mg 04/09/24 21:00 04/13/24 20:38 Atorvastatin 10 Mg Tablet PO 10 mg QPM JOSE D Administration Carvedilol 50 mg 04/11/24 21:00 04/13/24 20:38 Carvedilol 12.5 Mg Tablet PO 50 mg BID JOSE D Administration Enoxaparin Sodium 40 mg 04/10/24 09:00 04/13/24 08:29 Enoxaparin 40 Mg/0.4 Ml Syringe SUBQ 40 mg DAILY JOSE D Administration Multi-Ingredient Ointment 1 applic 04/14/24 07:32 Zinc Oxide 20% Oint 30 Gm Tube TOP PRN PRN Skin Care Nifedipine 30 mg 04/14/24 09:00 Nifedipine Er 30 Mg Tablet PO DAILY JOSE D Polyethylene Glycol 17 gm 04/11/24 09:00 04/13/24 08:29 Polyethylene Glycol 3350 17 Gm Packet PO 17 gm DAILY JOSE D Administration Sodium Chloride 10 ml 04/09/24 16:33 Sodium Chloride Flush 0.9% 10 Ml Syringe IVP PRN PRN NEEDED PER PROVIDER ORDERS Sodium Chloride 10 ml 04/09/24 17:00 04/14/24 02:00 Sodium Chloride Flush 0.9% 10 Ml Syringe IVP 10 ml 0100,0900,1700 JOSE D Administration Objective Vital Signs/Intake & Output Reviewed Vital Signs: Yes Vital Signs: Vital Signs x48h Temp Pulse Resp BP Pulse Ox 04/13/24 08:39 98.1 F 68 18 197/91 H 97 04/13/24 08:27 98.4 F 64 24 188/81 H 98 Intake & Output: Intake & Output 04/12/24 04/13/24 04/14/24 04/15/24 05:59 05:59 05:59 05:59 Intake Total 1680 / 1680 920 / 920 1270 / 1270 Balance 1680 / 1680 920 / 920 1270 / 1270 Objective General Appearance: positive No acute distress, Alert and Anxious Eyes Bilateral: positive PERRL and EOMI Respiratory: positive Chest non-tender, No respiratory distress and Breath sounds nml Cardiovascular: positive Regular rate & rhythm and No murmur Abdomen: positive Non-tender and No distention Back: positive Nml inspection; negative CVA tenderness (R) or CVA tenderness (L) Skin: positive Dry and Pallor Extremities: positive Non-tender; negative Full ROM Neurologic/Psychiatric: positive Oriented x3, Weakness (Left sided UE and LE 4/5) and Facial droop (Mild left ) Lab Results 04/14/24 04:10 04/14/24 04:10 Other Labs: Lab Results x24hrs 04/14/24 Range/Units 04:10 WBC 3.9 L (4.8-10.8) x10^3/uL RBC 3.48 L (4.20-5.40) 10^6/uL Hgb 11.0 L (12.0-16.0) g/dL Hct 34.0 L (37.0-47.0) % MCV 97.7 (81.0-99.0) fL MCH 31.6 H (27.0-31.0) pg MCHC 32.4 (32.0-36.0) g/dL RDW 12.0 (12.0-15.0) % Plt Count 179 (130-450) 10^3/uL MPV 10.5 (7.9-10.8) fL Sodium 135 (135-145) mmol/L Potassium 4.0 (3.5-4.5) mmol/L Chloride 103 (101-111) mmol/L Carbon Dioxide 29 (21-32) mmol/L Anion Gap 3.0 L (6-13) BUN 23 H (6-20) mg/dL Creatinine 0.8 (0.6-1.3) mg/dL Estimated GFR (MDRD) 69 L (>89) Glucose 86 (74-104) mg/dL Calcium 8.9 (8.5-10.3) mg/dL Diagnostic Imaging Diagnostic Imaging Results: positive Final report reviewed Diagnostic Imaging Comments: MRI brain reviewed from 04/09 acute infarct of the right basal ganglia and ramos radiata. CT angiography reviewed from o significant arterial abnormality, appropriate flow, no stenosis. Assessment/Plan Problem List (1) Acute CVA (cerebrovascular accident): Impression: MRI reviewedacute infarct of right basal ganglia and ramos radiata from 04/09. Echo reviewed - Normal left ventricular size and function, EF of 60%. Mild diastolic dysfunction. Left atrium is mildly dilated. Normal right ventricular size and function. Continue cardiac telemetry; no arrhythmias noted at this time. Continue aspirin and statin. Physical therapy, Occupational Therapy ordered - reccomend SNF. Patient now agreeable; referrals sent. Bed available for Monday. (2) Left-sided weakness: Impression: See above. Improving with physical therapy. (3) Hypertension: Impression: Patient does not want TOVA/ARB due to feeling weak and fatigued on it previously. Started Procardia with good reduction of blood pressure. Increased dose of 60 mg caused her to feel unsteady, lightheaded. Will decrease dose back to 30 mg.. Home Coreg doubled. (4) Hyperlipidemia: Impression: Continue home statin.
[2024-04-14] MEDS: NIFEdipine ER 30 MG TABLET PO SCH (08:53)
--- NOTE | 2024-04-15 08:57 | Discharge Summary ---
Discharge Summary Admit Date: 04/09/24 Discharge Date: 04/15/24 Discharging Provider: Dr. Ann Navarro Primary Care Provider: Does not have one at this time DIAGNOSES Admission Diagnoses: Acute CVA Left-sided weakness Hypertension Hyperlipidemia Discharge Diagnoses with Status of Each Condition: Acute CVAMRI shows acute infarct of right basal ganglia and ramos radiata. Echo was completed which did not show any thrombus or PFO. Cardiac telemetry was continued, no arrhythmias were noted. Aspirin and statin were continued. PT OT did see the patientrecommended SNF, or patient is going to be going for rehab. Left-sided weaknessdue to stroke, improving with physical therapy. Hypertensionlabile blood pressure. Home Coreg doubled, Procardia started. HyperlipidemiaHome statin continued. HPI History of Present Illness: Patient is a 83-year-old female with a history of CABG in 2008, hyperlipidemia, hypertension who presents after left-sided weakness. Patient states that yesterday, around 8 AM, she noted that her left leg was weaker, as well as her left arm. She stated that it kept giving out. She also stated that she had difficulty braiding her hair.After this, she believed she had a "minor stroke" but didn't think there was anything that could be done, so she didn't seek medical attention. Of note, her PCP recently retired as well (cannot recall their name), so she didn't make an appointment with a PCP either. This morning, she was at the bank, and she had 2-3 falls. Bystanders noted the weakness and encouraged her to go to a walk-in clinic, who sent her here. She has never had any strokes in the past. She denies any history of abnormal heart rhythms including atrial fibrillation, although her history is notable for a CABG in 2008. She states her blood pressure is well controlled and her doctor stopped her losartan. She is not a diabetic. Patient states that her left leg and her left arm both feel weak. She notes normal sensation. She notes no difficulties moving her right side. She has no vision changes, tongue deviation, difficulty speaking, difficulty expressing herself. She also denies any fevers, chills, chest pain, shortness of breath. She took her medications earlier this morning including her aspirin. CONSULTS | PROCEDURES Consultations: Physical therapy, Occupational Therapy, Teleneurology Procedures: Brain MRI, head CT, CTA head and neck, chest CT, ECHO HOSPITAL COURSE Hospital Course: Patient is a 83-year-old female with a history of hypertension, hyperlipidemia who presented after having multiple falls at a bank. She noted left-sided weakness. MRI was done which did show an acute stroke, and acute infarct of the right basal ganglia and ramos radiata. Permissive hypertension was allowed for 24 hours, and when she was placed back on her home Coreg. Procardia was also added for good control of her blood pressure. Echo was done which showed no heart failure, no thrombus, no PFO. Aspirin and statin was continued. Physical therapy and Occupational Therapy worked with the patient, and recommended SNF for further rehab. Patient's daughters were updated, and were agreeable to SNF. Patient was safely discharged for further rehab. ALLERGIES Allergies Allergy/AdvReac Type Severity Reaction Status Date / Time atenolol AdvReac Intermediate sore Verified 04/09/24 15:50 MEDICATIONS Ambulatory Orders Medication Instructions Recorded Confirmed rosuvastatin 5 mg tablet (Crestor) 5 mg PO DAILY 06/20/20 04/09/24 aspirin 81 mg chewable tablet 81 mg PO DAILY #30 tabs 04/15/24 carvedilol 25 mg tablet (Coreg) 50 mg (2 x 25 mg) PO BID #60 tabs 04/15/24 nifedipine 30 mg tablet,extended 30 mg PO DAILY #30 tabs 04/15/24 release 24 hr PHYSICAL EXAM AT DISCHARGE General Appearance: positive No acute distress and Alert Eyes Bilateral: positive Normal inspection, PERRL and EOMI ENT: positive ENT inspection nml, Pharynx nml, No signs of dehydration and Other (Mild left-sided facial droop, no tongue deviation) Neck: positive Nml inspection and Trachea midline Respiratory: positive Chest non-tender and No respiratory distress Cardiovascular: positive Regular rate & rhythm, No murmur and No gallop Peripheral Pulses: positive 2+ Abdomen: positive Non-tender and No distention; negative Guarding, Hepatomegaly or Splenomegaly Back: positive Nml inspection; negative CVA tenderness (R) or CVA tenderness (L) Skin: positive Color nml and Warm; negative Dry, Pallor or Skin rash Extremities: positive Non-tender, Full ROM and No pedal edema Neurologic/Psychiatric: positive Oriented x3, Weakness (LUE and LLE 4/5 in strength ) and Facial droop (mild L facial droop noted) LABS 04/14/24 04:10 04/14/24 04:10 DIAGNOSTIC IMAGING Diagnostic Imaging Results: Final report reviewed Diagnostic Imaging Results Comments: Brain MRI showed acute infarct of the right basal ganglia and ramos radiata. Head CT showed no acute intracranial pathology. CTA showed no significant intracranial arterial abnormality, no stenosis noted. Chest CT showed multiple granulomas and pulmonary micronodules which can be followed up with chest CT in a year. QUALITY (Female Hip Fx Only) Was patient sent home on osteoporosis medication?: No FOLLOW UP Follow Up: Follow-up with neurology, establish care with primary care physician, repeat chest CT in 1 year. TIME SPENT Time Spent in Discharge (Minutes): 30 Discharge Plan Discharge Patient Disposition: [facility] DC/Xfer Prescriptions: New aspirin 81 mg Tablet,Chewable 81 mg PO DAILY Qty: 30 0RF nifedipine 30 mg Tablet Extended Release 24hr 30 mg PO DAILY Qty: 30 0RF carvedilol [Coreg] 25 mg tablet 50 mg PO BID Qty: 60 0RF Rx Instructions: must administer with a meal/food Continued rosuvastatin [Crestor] 5 MG tablet 5 mg PO DAILY Rx Instructions: not sure about the dosage Discontinued aspirin 81 MG tablet,chewable 81 mg PO DAILY carvedilol 25 mg tablet 25 mg PO BID losartan 50 mg tablet 100 mg PO DAILY Activity Restrictions: Activity as Tolerated Diet: Regular Health Concerns: You came in initially because you fell a few times at the bank, and noted some left-sided weakness. 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 While you were here, we had an ultrasound done of your heart which did not show any abnormal findings. We also got a CT of your chest which did show some small nodules which need to be followed up on in approximately 1 year. Since you have been here, your blood pressure medications have been adjusted. We increased the dose of your home Coreg, and added a new medication called Procardia, which you have tolerated well at a low dose. Physical therapy and Occupational Therapy worked with you, and thought you would be a good candidate for a usp facility where you would receive more rehab. We talked extensively about establishing care with a new primary care physician as yours is no longer in practice. You should also see a neurologist for follow-up on the stroke. Plan of Treatment: 1. Continue your aspirin, your statin, as well as your two blood pressure medications. 2. Get a repeat CT scan of your chest in 1 year to follow-up on the pulmonary nodules that were found. 3. Continue to work on building back your strength and rehab. 4. Establish care with a new primary care physician. Patient Instructions: Stroke Ischemic, Stroke Self Care, Stroke Dc
[2024-04-15 12:41] VITALS: O2SAT 97
--- NOTE | 2024-04-15 12:41 | Discharge Summary ---
"Discharge Plan for SNF / [facility] Discharge Plan And Transition Orders Problem Reviewed?: Yes Allergies Allergy/AdvReac Type Severity Reaction Status Date / Time atenolol AdvReac Intermediate sore Verified 04/09/24 15:50 Health Concerns: You came in initially because you [place] a few times at the bank, and noted some left-sided weakness. 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 While you were here, we had an ultrasound done of your heart which did not show any abnormal findings. We also got a CT of your chest which did show some small nodules which need to be followed up on in approximately 1 year. Since you have been here, your blood pressure medications have been adjusted. We increased the dose of your home Coreg, and added a new medication called Procardia, which you have tolerated well at a low dose. Physical therapy and Occupational Therapy worked with you, and thought you would be a good candidate for a assisted facility where you would receive more rehab. We talked extensively about establishing care with a new primary care physician as yours is no longer in practice. You should also see a neurologist for follow-up on the stroke. Plan of Treatment: 1. Continue your aspirin, your statin, as well as your two blood pressure medications. 2. Get a repeat CT scan of your chest in 1 year to follow-up on the pulmonary nodules that were found. 3. Continue to work on building back your strength and rehab. 4. Establish care with a new primary care physician. SNF / CUSTODIAL Transition Orders Admit to (Facility): [facility] Under the care of (Name): Dr. 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 Echo was completed which did not show any thrombus or PFO. Cardiac telemetry was continued, no arrhythmias were noted. Aspirin and statin were continued. PT OT did see the patientrecommended SNF, where patient is going to be going for rehab. Left-sided weaknessdue to stroke, improving with physical therapy. Hypertensionlabile blood pressure. Home Coreg doubled, Procardia started. HyperlipidemiaHome statin continued. Medicare Certification Statement: I certify that [facility] assisted care is medically necessary on a continuing basis for any of the conditions for which she/he is receiving care during hospitalization. Notify PCP of admission and forward orders to primary provider for signature. Weight on admission and: Weekly Other Notification Orders: Call PCP immediately if patient develops dyspnea, chest pain/tightness or edema. House Bowel Program: Yes Additional Bowel Program Orders: If no BM after 2 days, nurse may give M.O.M. 30ml PO PRN and/or ducolax Supp 1 HI and/or JANNIE 250mg P.O., and/or senna 1-2 tabs PO. On day 3 nurse may give repeat above order until residents constipation is resolved. Annual Influenza Vaccine (between Mar 10 and October 07): Yes Two-step PPD per [facility] [id number] or approved exception documents: Yes Lab Tests or X-ray Orders: CT Chest in one year to follow up on orders. Medication Orders: PLEASE REFER TO THE DISCHARGE MEDICATION LIST. Insulin Orders?: No Diet Texture: Regular Liquids: Thin May have monthly special meal: Yes Therapies | Activity Therapy: Evaluation | Treat if indicated: PT and OT Rehabilitation Potential: Maximize functional status, Return to independent living and Maintain present ADL Functional Weight Bearing: Full Weight Follow Up Follow Up: Follow-up with neurology, establish care with primary care physician, repeat chest CT in 1 year."
--- NOTE | 2024-05-08 17:15 | PT Plan of Care ---
PT Inpatient Plan of Care DIAGNOSIS Diagnosis: CVA Diagnosis: L side weakness Referring Provider: Ann Navarro Patient Status: Inpatient CHIEF COMPLAINT Chief Complaint: L side weakness, multiple GLFs Onset of Chief Complaint: ~04/08/24 ASSESSMENT Assessment: Pt is an 83yo F referred for PT eval s/p acute infarct of R basal ganglia and ramos radiata resulting in L sided weakness and incoordination. Pt reports she is fully indep at baseline including ambulation without AD and regular dancing. Upon PT eval, pt supine in bed and agreeable to participate. Pt req CGA for bed mobility and STS transfer. BUE ROM and MMT WFL however pt presents with moderate incoordination and dysmetria in LLE, mild symptoms in LUE. Pt stated it feels like her LUE and LLE are "floating" and she requires increased time to complete tasks, for motor planning and to complete mobility. Cammy with max cueing during functional mobility w/ FWW for obstacle awareness and negotiation. Pt req extensive cueing for SPT w/ FWW to b/s chair. Pt performed stair mobility using BL HRs with min to modAx2 and max cueing for stepping pattern. Overall distance approx 40' however gait pattern rapidly degraded after approx 20' with increased DIOGENES required for safety. Pt will benefit from continued skilled PT in acute setting to reduce fall risk and improve gait pattern. When medically clear, PT rec dc to SNF for continued rehab for recovery to PLOF. GOALS Improve supine to sit to:: Modified Independent Improve sit to stand to:: Modified Independent Improve pivot transfer ability to:: Contact Guard Improve sit to supine to:: Modified Independent Improve gait ability to:: Min A Advance Assistive Device to:: Front Wheeled Walker Increase distance walked to (in feet):: 50 Reduce verbal cues to:: 1 Improve Sitting Balance to:: Good PLAN Frequency: 1-2x/day Duration: Until goals are met DISCHARGE RECOMMENDATIONS Discharge Location: [facility] Living Facility Support/Services Needed: With assist DC Equipment Recommended: Front wheeled walker Transport Needs at Discharge: Wheelchair van
== END 2024-04-15 13:25 | DRG 65 ==
LOC: ED 11:41 → MS2 15:53
PROVIDERS: ADMIT Internal Medicine; ATTEND Internal Medicine
DX: I25.10 Atherosclerotic heart disease of native coronary artery without angina pectoris; Z79.82 Long term (current) use of aspirin; I10 Essential (primary) hypertension; Z60.2 Problems related to living alone; Z95.1 Presence of aortocoronary bypass graft; R29.703 NIHSS score 3; E78.5 Hyperlipidemia, unspecified; G81.94 Hemiplegia, unspecified affecting left nondominant side; Z91.81 History of falling; I63.9 Cerebral infarction, unspecified